=== PATIENT | male | born 1965 | race Caucasian/White ===

== ENCOUNTER 2020-05-30 04:25 | Observation (INO) ==
[2020-05-30] MEDS ORDERED: Ipratropium/Albuterol Neb 3 ML ONE (04:32)
[2020-05-30] MEDS ORDERED: methylPREDNISolone 125 MG/2 ML VIAL IVP ONE (04:33)
[2020-05-30] MEDS ORDERED: Ipratropium/Albuterol Neb 3 ML IH ONE (04:33)
[2020-05-30 05:38] LABS: Basophils # 0.1 K/mcL (0.0-0.2); Eosinophils # 0.4 K/mcL (0.0-0.6); Eosinophils % 3.2 %; Hemoglobin 19.7 g/dL (12.9-16.9); Immature Granulocytes % 0.3 % (0-4); Lymphocytes # 1.8 K/mcL (0.6-4.6); Lymphocytes % 14.7 %; Mean Corpuscular Hemoglobin 33.4 pg (28.0-33.3); Mean Corpuscular Volume 98.5 fL (83.0-100.0); Mean Platelet Volume 10.2 fL (9.4-12.4); Monocytes # 0.7 K/mcL (0.0-1.3); Monocytes % 5.5 %; Neutrophils # 9.3 K/mcL (1.6-8.9); Platelet Count 225 K/mcL (140-400); Red Blood Count 5.89 M/mcL (4.19-5.50); Red Cell Distribution Width 12.8 % (11.5-14.5); Segmented Neutrophils % 75.3 %; White Blood Count 12.3 K/mcL (4.3-11.1)
[2020-05-30 06:01] LABS: BUN/Creatinine Ratio 13 (6-26); Blood Urea Nitrogen 13 mg/dL (6-20); Carbon Dioxide 24 mEq/L (23-29); Chloride 103 mEq/L (98-107); Glucose 128 mg/dL (70-105); Osmolality,Calculated 290 (280-300); Potassium 4.2 mEq/L (3.5-5.1); Sodium 139 mEq/L (136-145); Troponin I < 0.03 ng/mL (< 0.04); eGFR For African Americans > 60 (> 60); eGFR For Non-African Americans > 60 (> 60)
[2020-05-30] MEDS ORDERED: Ondansetron 4 MG/2 ML VIAL IVP PRN (07:59)
[2020-05-30] MEDS ORDERED: Naloxone 0.4 MG/ML INJ IVP PRN (07:59)
[2020-05-30] MEDS: Azithromycin 500 MG in 0.9 % Sodium Chloride 250 ML IVPB SCH (09:03)
[2020-05-30] MEDS: Ipratropium/Albuterol Neb 3 ML IH SCH ×5 (09:17→23:27)
[2020-05-30] MEDS: Budesonide/Formoterol 160/4.5 1 PUFF INH IH SCH ×2 (09:17→20:19)
[2020-05-30] MEDS: *HR* Heparin 5,000 UNIT/ML VIAL SQ SCH ×2 (13:31→21:32)
[2020-05-30] MEDS: Acetylcysteine 10% 2 ML INHSOL IH SCH ×3 (14:26→20:20)
[2020-05-30] MEDS ORDERED: *HR* LORazepam 0.5 MG TABLET PO ONE (17:47)
[2020-05-30] MEDS ORDERED: lisinopriL 20 MG TABLET PO SCH (20:30)
[2020-05-30] MEDS ORDERED: NIFEdipine XL (24 HR) 60 MG TAB.ER.24 PO SCH (20:30)
[2020-05-30] MEDS: NIFEdipine XL (24 HR) 60 MG TAB.ER.24 PO SCH (21:33)
[2020-05-31] MEDS: Ipratropium/Albuterol Neb 3 ML IH SCH ×7 (00:45→23:15)
[2020-05-31] MEDS ORDERED: Isovue-370 500 ML BOTTLE IVP ONE (01:49)
[2020-05-31 03:41] LABS: Basophils # 0.1 K/mcL (0.0-0.2); Basophils % 0.4 %; Eosinophils % 0.3 %; Hematocrit 54.2 % (37.5-50.1); Hemoglobin 18.5 g/dL (12.9-16.9); Immature Granulocytes % 0.3 % (0-4); Lymphocytes # 2.1 K/mcL (0.6-4.6); Lymphocytes % 15.1 %; Mean Corpuscular HGB Conc 34.1 g/dL (31.6-35.5); Mean Corpuscular Hemoglobin 34.2 pg (28.0-33.3); Mean Corpuscular Volume 100.2 fL (83.0-100.0); Mean Platelet Volume 10.3 fL (9.4-12.4); Monocytes # 1.2 K/mcL (0.0-1.3); Monocytes % 8.3 %; Neutrophils # 10.7 K/mcL (1.6-8.9); Platelet Count 236 K/mcL (140-400); Red Blood Count 5.41 M/mcL (4.19-5.50); Red Cell Distribution Width 12.8 % (11.5-14.5); Segmented Neutrophils % 75.6 %; White Blood Count 14.2 K/mcL (4.3-11.1)
[2020-05-31 04:03] LABS: BUN/Creatinine Ratio 18 (6-26); Blood Urea Nitrogen 17 mg/dL (6-20); Calcium 9.8 mg/dL (8.6-10.3); Carbon Dioxide 25 mEq/L (23-29); Chloride 102 mEq/L (98-107); Glucose 95 mg/dL (70-105); Osmolality,Calculated 283 (280-300); Potassium 4.2 mEq/L (3.5-5.1); Sodium 136 mEq/L (136-145); eGFR For African Americans > 60 (> 60); eGFR For Non-African Americans > 60 (> 60)
[2020-05-31] MEDS: Acetylcysteine 10% 2 ML INHSOL IH SCH ×4 (04:04→20:43)
[2020-05-31] MEDS: *HR* Heparin 5,000 UNIT/ML VIAL SQ SCH ×2 (05:41→13:35)
[2020-05-31] MEDS ORDERED: *HR* LORazepam 0.5 MG TABLET PO ONE (06:24)
[2020-05-31] MEDS: Budesonide/Formoterol 160/4.5 1 PUFF INH IH SCH ×2 (07:39→20:44)
[2020-05-31] MEDS ORDERED: MethylPREDNISolone 40 MG/ML VIAL IVP SCH (08:00)
[2020-05-31] MEDS: Azithromycin 500 MG in 0.9 % Sodium Chloride 250 ML IVPB SCH (08:18)
[2020-05-31] MEDS ORDERED: Azithromycin 250 MG TABLET PO SCH (09:00)
[2020-05-31] MEDS ORDERED: lisinopriL 20 MG TABLET PO SCH (09:00)
[2020-05-31] MEDS: predniSONE 20 MG TABLET PO SCH (10:37)
[2020-05-31] MEDS ORDERED: hydrOXYzine pamoate 25 MG CAPSULE PO PRN (14:20)
[2020-05-31] MEDS ORDERED: Nicotine 2 MG GUM BC PRN (15:43)
[2020-05-31] MEDS ORDERED: Nicotine 14 MG PATCH.TD24 TD PRN (15:43)
[2020-05-31] MEDS: NIFEdipine XL (24 HR) 60 MG TAB.ER.24 PO SCH (20:48)
[2020-06-01] MEDS: Ipratropium/Albuterol Neb 3 ML IH SCH ×3 (03:18→11:15)
[2020-06-01] MEDS: Acetylcysteine 10% 2 ML INHSOL IH SCH ×2 (03:18→07:30)
[2020-06-01] MEDS ORDERED: *HR* Enoxaparin 40 MG/0.4 ML SYRINGE SQ SCH (06:00)
[2020-06-01] MEDS: Budesonide/Formoterol 160/4.5 1 PUFF INH IH SCH (07:31)
[2020-06-01] MEDS: predniSONE 20 MG TABLET PO SCH (08:28)
[2020-06-01] MEDS ORDERED: Azithromycin 250 MG TABLET PO SCH (09:00)
[2020-06-01] MEDS ORDERED: lisinopriL 20 MG TABLET PO SCH (09:00)
[2020-06-01 15:06] VITALS: BP 146/96
== END 2020-06-01 16:49 | disposition home or self-care (01) ==
LOC: 3NENU 04:25 → EMEROOARM 04:25 → SUATTDRO 07:45 → 3NENU 08:06
PROVIDERS: ADMIT Family Medicine; ATTEND Internal Medicine